=== PATIENT | female | born 1965 | race Caucasian/White ===

== ENCOUNTER 2016-08-19 15:07 | Inpatient (IN) ==
[2016-08-19 16:04] LABS: Basophils % 0.6 %; Eosinophils # 0.1 K/mcL (0.0-0.6); Eosinophils % 1.5 %; Hematocrit 32.7 % (35.3-44.9); Hemoglobin 10.9 g/dL (11.5-15.4); Immature Granulocytes % 0.4 % (0-4); Lymphocytes # 1.8 K/mcL (0.6-4.6); Lymphocytes % 25.7 %; Mean Corpuscular HGB Conc 33.3 g/dL (31.6-35.5); Mean Corpuscular Hemoglobin 29.6 pg (28.0-33.3); Mean Corpuscular Volume 88.9 fL (83.0-100.0); Monocytes # 0.8 K/mcL (0.0-1.3); Monocytes % 10.9 %; Neutrophils # 4.2 K/mcL (1.6-8.9); Platelet Count 146 K/mcL (140-400); Red Blood Count 3.68 M/mcL (3.82-4.97); Red Cell Distribution Width 13.3 % (11.5-14.5); Segmented Neutrophils % 60.9 %
--- NOTE | 2016-08-19 16:05 | Emergency Department Note ---
Disposition Clinical Impression: Lymphangitis Cellulitis Qualifiers: Site of cellulitis: extremity Site of cellulitis of extremity: lower extremity Laterality: unspecified laterality Qualified Code(s): L03.119 - Cellulitis of unspecified part of limb Disposition: Admitted As Inpatient Condition: Fair Referrals: Rayshawn Barroso MD [Primary Care Provider] - Forms: ED Satisfaction Letter Time of Disposition: 18:43 Skin/Abscess/FB HPI Chief complaint: ED Skin/Abscess/Foreign Body Stated complaint: ulcers on feet Time Seen by Provider: 08/19/16 15:27 Source: patient Limitations: no limitations Nursing Notes Reviewed: Yes Vital Signs Reviewed: Yes HPI Narrative: Ms. Wells, a 50 yo female, presents from home by POV with chief complaint of bilateral great toe pain. Patient is diabetic with a history of diabetic ulcers; is followed by [place] [facility]. Patient states she had calluses on the pads of both great toes which she removed at home 3 weeks ago. She was evaluated by podiatry one week ago and told to keep them clean, dry, with antibiotic ointment, and bandaged. Over the past 3 days, she has noted erythema. Over the past 24 hours, she has noted swelling. She is concerned it may be infected. PMH: Type 2 diabetes on oral antihyperglycemic as well as insulin. Psoriasis- denies use of immunosuppressants at this time. ROS: Positive: Bilateral great toe pain with wound and erythema swelling. Numbness of the different great toe. Negative: Fever, chills, nausea, vomiting, chest pains, palpitations, dyspnea, abdominal pain, changes in bowel or bladder, difficulty with evaluation Home Medications Medication Instructions Recorded Confirmed Citalopram [CeleXA] 20 mg PO DAILY 06/30/15 08/19/16 Dulaglutide [Trulicity] 0.75 mg SQ QWEEK 06/30/15 08/19/16 Insulin DETEMIR [Levemir] 60 unit SQ QAM 06/30/15 08/19/16 Insulin LISPRO [Humalog Kwikpen 0 unit SQ BIDWM MDD PER SLIDING 06/30/15 U-100] SCALE Metformin HCl [Glucophage] 1,000 mg PO BID 06/30/15 08/19/16 Pregabalin [Lyrica] 100 mg PO TID 06/30/15 08/19/16 Acetaminophen [Tylenol] 1,000 mg PO Q6HR PRN 08/19/16 08/19/16 Cyanocobalamin (Vitamin B-12) 1,000 mcg PO DAILY 08/19/16 08/19/16 [Vitamin B12] Etanercept [Enbrel] 50 mg SQ 2XW 08/19/16 08/19/16 Folic Acid 1 mg PO DAILY 08/19/16 08/19/16 Imipramine HCl [Tofranil] 50 mg PO BID 08/19/16 08/19/16 Insulin DETEMIR [Levemir Flextouch] 65 unit SQ HS 08/19/16 08/19/16 Multivitamin [Multivitamins] 1 cap PO DAILY 08/19/16 08/19/16 Pantoprazole Sodium [Protonix] 40 mg PO DAILY 08/19/16 08/19/16 Triamcinolone Acet 0.1% CRM 1 appl TP BID PRN 08/19/16 08/19/16 [Kenalog] Allergies Allergy/AdvReac Type Severity Reaction Status Date / Time Amoxicillin Allergy See Verified 08/19/16 15:15 Comments ibuprofen [From Advil] Allergy See Verified 08/19/16 15:15 Comments All systems ED: reviewed and negative except as stated. Past Medical History - Past Medical History Medical history: Reports: cirrhosis, diabetes Psychiatric history: Reports: no psych history - Social History Smoking Status: Never smoker Smokeless Tobacco Status: No Alcohol use: Reports: none Drug use: Reports: none Physical Exam Vital Signs Reviewed General: Patient is alert, oriented, and in no acute distress. HEENT: No facial asymmetry. Head is normocephalic and atraumatic. PERRLA. Trachea midline. Cardiovascular: Heart regular rate and rhythm without clicks, rubs, gallops, or murmurs. No JVD. PMI nondisplaced. Respiratory: Symmetric chest rise with poor respiratory effort. Bilateral breath sounds are clear without wheezing, crackles, or rhonchi. Abdomen: Obese. Bowel sounds present normoactive x-4 quadrants. Abdomen is soft, nondistended, and nontender. Musculoskeletal: Spontaneously moves all extremity is including bilateral great toes. Skin: Right great toe is swollen, erythematous, with approximately 1.5 cm diameter wound with lymphangitic streaking to the mid tibia. Left great toe is swollen, erythematous streaking, with 0.5 cm diameter ulcer. Neuro: Tip of patient's great toe has decreased sensation to light touch. Otherwise sensation intact in patient's bilateral feet. Psych: Patient's affect is appropriate for situation. - General Limitations: no limitations General appearance: alert, in no apparent distress Course Course Narrative: Initial concern is for bilateral poorly healing diabetic wounds one of which is ulcerative. Signs of localized infection without indication of systemic infection. Check sedimentation rate and, if positive, CT the patient's feet to rule out osteomyelitis. Patient has not gone through outpatient antibiotics. Concern however is her poorly controlled diabetes, peripheral artery disease. Patient has elevated ESR. Imaging is not remarkable for osteomyelitis. Have started empiric vancomycin and meropenem. Spoke with the admitting hospitalist, Dr. Vasques, who agrees to accept the patient. Vital Signs Temperature 98.5 F 08/19/16 15:16 Pulse Rate 108 08/19/16 15:16 Respiratory Rate 16 08/19/16 15:16 Blood Pressure 119/74 08/19/16 15:16 O2 Sat by Pulse Oximetry 96 08/19/16 15:16 Temperature 98.5 F 08/19/16 15:16 Pulse Rate 103 08/19/16 18:25 Respiratory Rate 16 08/19/16 18:25 Blood Pressure 127/80 08/19/16 18:25 O2 Sat by Pulse Oximetry 96 08/19/16 15:16 Oxygen Delivery Oxygen Delivery Room Air Skin/Abscess/Foreign Body - Medical Records Medical records reviewed: Yes I reviewed the patient's medical records. - Lab Data Lab results reviewed: Yes I reviewed the patient's lab results. Result diagrams: 08/19/16 15:58 08/19/16 15:58 Lab Results 08/19/16 08/19/16 08/19/16 Range/Units 15:58 15:58 15:58 WBC 6.9 (4.3-11.1) K/mcL RBC 3.68 L (3.82-4.97) M/mcL Hgb 10.9 L (11.5-15.4) g/dL Hct 32.7 L (35.3-44.9) % MCV 88.9 (83.0-100.0) fL MCH 29.6 (28.0-33.3) pg MCHC 33.3 (31.6-35.5) g/dL RDW 13.3 (11.5-14.5) % Plt Count 146 (140-400) K/mcL MPV 10.0 (9.4-12.4) fL Immature Gran % 0.4 (0-4) % Seg Neutrophils % 60.9 % Lymphocytes % 25.7 % Monocytes % 10.9 % Eosinophils % 1.5 % Basophils % 0.6 % Neutrophils # 4.2 (1.6-8.9) K/mcL Lymphocytes # 1.8 (0.6-4.6) K/mcL Monocytes # 0.8 (0.0-1.3) K/mcL Eosinophils # 0.1 (0.0-0.6) K/mcL Basophils # 0.0 (0.0-0.2) K/mcL ESR 45 H (0-15) mm/hr Sodium 136 (136-145) mEq/L Potassium 3.9 (3.5-4.5) mEq/L Chloride 102 (98-109) mEq/L Carbon Dioxide 22 (19-29) mEq/L BUN 10 (7-20) mg/dL Creatinine 0.68 (0.57-1.11) mg/dL Est GFR ( Amer) > 60 (> 60) Est GFR (Non-Af Amer) > 60 (> 60) BUN/Creatinine Ratio 15 (6-26) Glucose 232 H (70-99) mg/dL Calculated Osmolality 288 (280-300) Calcium 9.7 (8.6-10.8) mg/dL - Radiology Data Radiology results reviewed: Yes I reviewed the patient's radiology results. Foot X-Ray 08/19/16 15:29 IMPRESSION: 1. Suspected ulceration along the dorsal surface of left great toe with tiny associated radiopaque foreign bodies. 2. 0.1-0.2 cm suspected radiopaque foreign body near the skin of the dorsal right great toe. Although no obvious skin defect is noted in this area, this could represent a similar finding to that seen in the left great toe. 3. No findings osteomyelitis or necrotizing fasciitis. 4. Bony demineralization. 5. Osteoarthritic changes of the 1st metatarsophalangeal joints, mild on the left minimal on the right. D/ / Torrey Hinson MD / Torrey Hinson MD Interpreting Provider: Torrey Hinson MD Lower Extremity CT 08/19/16 16:15 IMPRESSION: 1. No CT evidence for osteomyelitis involving the right or left feet. 2. Diffuse and symmetric nonspecific mild subcutaneous edema of the bilateral feet and to a lesser extent involving the lower legs bilaterally with no focal organized drainable fluid collection identified. 3. Mild bilateral hindfoot and midfoot osteoarthritis as well as mild osteoarthritis of the bilateral 1st metatarsophalangeal joints. 4. Osteopenia. D/ / Jaylen Stevenson MD / Jaylen Stevenson MD Interpreting Provider: Jaylen Stevenson MD Attestation Statement - Attestation Attestation: I examined this patient and my medical decision-making was reviewed with the FINANCIAL DEVELOPER/PA/Advanced Practice Nurse/Resident Physician. I agree with the documented findings, disposition and treatment plan as described except to the extent set forth below. ED complaining of toe infections. Patient has ulcers on her great toes. They have been there for about 3 weeks. She has been using Neosporin and Band-Aids. They became more painful and red so she comes for evaluation. On examination the right great toe has an ulceration on the plantar aspect with minimal erythema. She also has an ulceration over the left great toe. Moderate amount of swelling and erythema of the great toe. She has erythema extending over the plantar base of the foot and dorsally over the foot. Plan. The patient has an ascending lymphangitis. IV antibiotics. We will check CT is and admit.
[2016-08-19] MEDS ORDERED: Vancomycin 1,000 MG in D5% in Water 250 ML IVPB ONE (16:16)
[2016-08-19 16:17] LABS: BUN/Creatinine Ratio 15 (6-26); Blood Urea Nitrogen 10 mg/dL (7-20); Calcium 9.7 mg/dL (8.6-10.8); Carbon Dioxide 22 mEq/L (19-29); Chloride 102 mEq/L (98-109); Glucose 232 mg/dL (70-99); Osmolality,Calculated 288 (280-300); Potassium 3.9 mEq/L (3.5-4.5); Sodium 136 mEq/L (136-145); eGFR For African Americans > 60 (> 60); eGFR For Non-African Americans > 60 (> 60)
[2016-08-19] MEDS ORDERED: Clindamycin 600 MG/50 ML 600 MG/50 ML IV.SOLN IVPB ONE (16:17)
[2016-08-19] MEDS ORDERED: Meropenem 500 MG in 0.9 % Sodium Chloride Mini Bag 100 ML IVPB ONE ×2 (18:50→21:15)
[2016-08-19] MEDS ORDERED: Naloxone 0.4 MG/ML INJ IVP PRN (20:08)
[2016-08-19] MEDS ORDERED: *HR* Dextrose 50 % in Water (Syg) 50 ML SYRINGE IVP PRN (20:43)
[2016-08-19] MEDS ORDERED: Dextrose Gel 15 GM PO PRN ×2 (20:43)
[2016-08-19] MEDS ORDERED: D5% in Water 1,000 ML IVC PRN (20:43)
[2016-08-19] MEDS ORDERED: Insulin LISPRO 300 UNITS/3 ML VIAL SQ SCH (21:00)
[2016-08-19] MEDS ORDERED: INSULIN DETEMIR 65 UNIT SQ SCH (21:00)
--- NOTE | 2016-08-19 21:04 | Internal Med History&Physical ---
<ChanellebryantsammySelvin lopez - Last Filed: 08/19/16 23:17> Date of Encounter: 08/19/16 Time of Encounter: 19:30 Assessment and Plan (1) Cellulitis of both feet Current visit: Yes Status: Acute Assess: Mrs. Wells presents with chief complaint of swelling and pain in her great toes bilaterally as well as the top of her left foot. Patient reports this has been going on for three weeks after she shaved two callouses off of each outer side of each great toe. She states this resulted in sores that were slow to heal which caused her to seek treatment with her litigation paralegal. She states she tried soaking the feet with various things, applying Neosporin, and bandaging them as directed by her litigation paralegal which seemed to help at first, but then the toes became erythematous within the last 48 hours and edematous within the last 24 hours. She reports concern of possible infection. Patient's feet appear to have cellulitis bilaterally which is worse in left foot by extending up to the top of the foot. Plan: IV clindamycin administered in ED IV vancomycin administered in ED Order for IV meropenem placed in ED Follow-up labs ordered Will continue vancomycin with pharmacy dosing for broad spectrum infection coverage Will add ceftriaxone for infection coverage as well Wound culture ordered Anaerobic culture ordered Wound care consult ordered Monitor patient for worsening signs of infection Monitor patient for any signs of allergic rxn to antibiotics Monitor vital signs Falls precautions/Up with assist status (2) Diabetes Current visit: Yes Status: Chronic Assess: Patient presents with history of chronic diabetes managed with oral anti- hyperglycemics and insulin. Plan: Continue insulin coverage Correction insulin dosing ordered Hypoglycemic protocol ordered Diabetic diet ordered Diabetic education consult ordered Patient educated regarding neuropathy and checking extremities (especially bony prominences) for signs of ulcerations and wounds Qualifiers: Diabetes mellitus type: type 2 Diabetes mellitus complication status: with neurologic complications Diabetes mellitus complication detail: with unspecified neuropathy Diabetes mellitus termite exterminator helper insulin use: with termite exterminator helper use Qualified Code(s): E11.40 - Type 2 diabetes mellitus with diabetic neuropathy, unspecified; Z79.4 - group home (current) use of insulin (3) Psoriasis Current visit: Yes Status: Chronic Assess: Patient presents with chronic history of psoriasis. Plan: Continue patient's Enbrel from home which is to be verified with pharmacy for administration (4) Migraine Current visit: Yes Status: Chronic Assess: Patient has a history of chronic migraines without aura or intractable pain. Patient states that she can usually manage her migraines with Tylenol or Tylenol Migraine. Plan: Tylenol 1,000 mg BID PRN for migraine symptoms Qualifiers: Migraine type: unspecified Status migrainosus presence: without status migrainosus Intractability: not intractable Qualified Code(s): G43.909 - Migraine, unspecified, not intractable, without status migrainosus (5) DVT prophylaxis Current visit: Yes Status: Acute Assess: Patient to receive DVT prophylaxis due to current infection status, bed rest, and inpatient protocol. Plan: Heparin 5,000 units SQ Q8 ordered Internal Medicine - H&P: HPI Chief complaint: Bilateral great toe pain/swelling Admitted From: Emergency Dept Plans for Post Hospital Care: Home History of present illness: Ms. Wells is a 50 year old female who presents from the ED with chief complaint of swelling and pain in her great toes bilaterally as well as the top of her left foot. Patient reports this has been going on for three weeks after she shaved two callouses off of each outer side of each great toe. She states this resulted in sores that were slow to heal which caused her to seek treatment with her litigation paralegal. She states she tried soaking the feet with various things, applying Neosporin, and bandaging them as directed by her litigation paralegal which seemed to help at first, but then the toes became erythematous within the last 48 hours and edematous within the last 24 hours. She reports concern of possible infection. Patient's feet appear to have cellulitis bilaterally which is worse in left foot by extending up to the top of the foot. Patient has history of chronic diabetes with oral antihyperglycemics and insulin dependency that is uncontrolled (glucose taken at home yesterday evening was 489 and later at midnight was 234). Glucose reading in the ED today was 232. Mrs. Wells has a history of psoriasis, diabetes, and migraines. She denies fever, chills, nausea, vomiting, chest pain, palpitations, SOB, abdominal pain, or changes in bowel and bladder. Patient was given IV vancomycin and clindamycin while in the ED with orders for IV meropenem placed by the ED as well. Patient is to be placed as observation status with falls precautions and [id number] status. Patient to be monitored closely for further signs of infection. Patient is at increased risk for worsening infection due to hyperglycemic status, bilateral neuropathy, and present signs of cellulitis. Time spent with patient was 40 minutes. Past Med Surg Social Fam HX - Past Medical History Source: patient Medical history: diabetes, migraine, other (Psoriasis) Psychiatric history: no psych history - Past Surgical History Surgical History: no surgical history - Social History Smoking Status: Former smoker Packs per day: 1/2 PPD 30 years ago Smokeless Tobacco Status: No Alcohol use: none Drug use: none Occupational status: unemployed Current living situation: Home, With Family Activity Level: Independent ambulation Recent Out of Country Travel Within the Last 8 Weeks: No Exposure or Possible Exposure to Illness During Travel: No - Family History Father Race: Family Member Ethnicity: Non- Living Status: Cause of : Cancer of bone/lung Hx Family Cancer: Yes (Bone/lung) Mother Race: Family Member Ethnicity: Non- Living Status: Still Living Hx Family Cardiac Disorders: Yes (HTN) Hx Family Cancer: Yes (Breast) Hx Family Endocrine Disorder: Yes (DM) Hx Family Musculoskeletal Disorders: Yes (Gout) Brother Race: Family Member Ethnicity: Non- Living Status: Still Living Hx Family Medical Disorders: No Sister Race: Family Member Ethnicity: Non- Living Status: Age at : 57 Cause of : Complications of DM Hx Family Cardiac Disorders: Yes (HD) Hx Family Respiratory Disorders: Yes (COPD) Internal Medicine - H&P: Meds Citalopram [CeleXA] 20 mg PO DAILY 06/30/15 [History] Dulaglutide [Trulicity] 0.75 mg SQ QWEEK 06/30/15 [History] Insulin DETEMIR [Levemir] 60 unit SQ QAM 06/30/15 [History] Insulin LISPRO [Humalog Kwikpen U-100] 0 unit SQ BIDWM MDD PER SLIDING SCALE 11/06 [History] Metformin HCl [Glucophage] 1,000 mg PO BID 06/30/15 [History] Pregabalin [Lyrica] 100 mg PO TID 06/30/15 [History] Acetaminophen [Tylenol] 1,000 mg PO Q6HR PRN 08/19/16 [History] Cyanocobalamin (Vitamin B-12) [Vitamin B12] 1,000 mcg PO DAILY 08/19/16 [History ] Etanercept [Enbrel] 50 mg SQ 2XW 08/19/16 [History] Folic Acid 1 mg PO DAILY 08/19/16 [History] Imipramine HCl [Tofranil] 50 mg PO BID 08/19/16 [History] Insulin DETEMIR [Levemir Flextouch] 65 unit SQ HS 08/19/16 [History] Multivitamin [Multivitamins] 1 cap PO DAILY 08/19/16 [History] Pantoprazole Sodium [Protonix] 40 mg PO DAILY 08/19/16 [History] Triamcinolone Acet 0.1% CRM [Kenalog] 1 appl TP BID PRN 08/19/16 [History] Allergies Amoxicillin Allergy (Verified 08/19/16 15:15) See Comments ibuprofen [From Advil] Allergy (Verified 08/19/16 15:15) See Comments All Systems PM: A 10-system review of systems was performed and is negative for pertinent findings except as documented above in the HPI. - Constitutional Constitutional: no chills, no fever(s), no night sweats - EENT Eyes: no change in vision, no discharge, no pain, no photophobia Ears: no ear discharge, no ear pain, no tinnitus Nose, mouth and throat: no dysphagia, no nasal discharge, no neck pain, no sore throat - Breasts Breasts: as per HPI - Cardiovascular Cardiovascular ROS IM: no chest pain, no diaphoresis, no dyspnea, no lightheadedness, no palpitations, no syncope - Respiratory Respiratory: no cough, no dyspnea, no wheezing, no excessive phlegm production - Gastrointestinal Gastrointestinal: no abdominal pain, no diarrhea, no hematemesis, no hematochezia, no melena, no nausea, no vomiting - Genitourinary Genitourinary: no change in urinary stream, no dysuria, no flank pain, no hematuria Menstruation: as per HPI - Musculoskeletal Musculoskeletal ROS IM: as per HPI, no numbness, no tingling - Integumentary Integumentary IM: as per HPI, erythema, sores - Neurological Neurological ROS: no confusion, no convulsions, no focal weakness, no numbness, no tingling, no tremor(s) - Psychiatric Psychiatric: as per HPI - Endocrine Endocrine IM: as per HPI - Hematologic/Lymphatic Hematologic/Lymphatic: no easy bruising - Allergic/Immunologic Allergic/Immunologic: as per HPI - Constitutional Vitals: Temp Pulse Resp BP Pulse Ox 98.2 F 99 18 102/65 98 08/19/16 20:11 08/19/16 20:11 08/19/16 20:11 08/19/16 20:11 08/19/16 20:11 General appearance: Present: cooperative, A&O X 3, pleasant, no acute distress, obese, answers questions appropriately - Head Head exam: Present: atraumatic, normocephalic - Eye Eye exam: Present: PERRL, conjuntiva pink, sclera anicteric Pupils: Present: PERRL - ENT ENT exam: Present: normal exam, normal external ear exam - Neck Neck exam general surgery: Present: supple, trachea midline. Absent: lymphadenopathy - Respiratory Respiratory exam: Present: CTAB. Absent: accessory muscle use, rales, rhonchi, wheezes - Cardiovascular Cardiovascular exam: Present: RRR, +S1, +S2. Absent: diastolic murmur, gallop, rubs, systolic murmur - GI/Abdominal GI/Abdominal exam: Present: normal bowel sounds, soft, no peritoneal signs. Absent: distended, tenderness - Rectal Rectal exam: Present: deferred - Additional comments: exam deferred. - Extremities Exam Extremities exam: Present: pedal edema (Bilateral edema and erythema due to cellulitis which is worse in left great toe and top of left foot ), warm, radial pulses palpable and symetrical. Absent: calf tenderness, cyanotic - Back Exam Back exam: Present: normal inspection - Neurological Exam Neurological exam: Present: CN II-XII intact, oriented X3, no focal deficits. Absent: pronater drift, facial droop, speech deficit - Psychiatric Psychiatric exam: Present: normal affect, normal mood - Skin Skin exam: Present: dry, erythema (Erythema, edema, and sores present on bilateral great toes), intact, warm (Bilateral warmth of great toes and feet which is more pronounced on the left foot) Internal Med - H&P Results - Labs CBC & Chem 7: 08/19/16 15:58 08/19/16 15:58 - Diagnostic Studies Other Images Additional comments: 2-View XR of the right and left foot dated 08/19/16 shows: Suspected ulceration along the dorsal surface of the left great toe with tiny associated radiopaque foreign bodies. 0.1-0.2 cm suspected radiopaque foreign body near the skin of the dorsal right great toe. Although no obvious skin defect is noted in this area, this could represent a similar finding to that seen in the left great toe. No findings of osteomyelitis or necrotizing fasciitis. Bony demineralization. Osteoarthritic changes of the 1st metatarsophalangeal joints, mild on the left and minimal on the right. CT of the left lower extremity w/o contrast and CT of the right lower extremity w/o contrast dated 08/19/16 shows: No CT evidence of osteomyelitis involving the left or right feet. Diffuse and symmetric non-specific mild subcutaneous edema of the bilateral feet and to a lesser extent involving the lower legs bilaterally with no focal organized drainable fluid collection identified. Mild bilateral nidfoot and midfoot osteoarthritis as well as mild osteoarthritis of the bilateral 1st metatarsophalangeal joints. Osteopenia. <Dean Mckenna - Last Filed: 08/20/16 02:37> Date of Encounter: 08/20/16 Internal Medicine - H&P: HPI History of present illness: Ms. Wells is a 50 year old female All Systems PM: A 10-system review of systems was performed and is negative for pertinent findings except as documented above in the HPI. - Constitutional Vitals: Temp Pulse Resp BP Pulse Ox 98.0 F 93 16 120/72 95 08/20/16 00:28 08/20/16 00:28 08/20/16 00:28 08/20/16 00:28 08/20/16 00:28 Internal Med - H&P Results - Labs CBC & Chem 7: 08/19/16 15:58 08/19/16 15:58 Labs: Liver Function 08/19/16 Range/Units 21:44 Total Bilirubin 0.6 (0.2-1.2) mg/dL Direct Bilirubin 0.3 (0.0-0.5) mg/dL AST 25 (5-34) Units/L ALT 27 (0-55) Units/L Alkaline Phosphatase 78 (38-126) Units/L Albumin 3.4 L (3.5-5.0) g/dL - Attending Attestation I examined this patient and my medical decision-making was reviewed with the ENERGY AUDIT ADVISOR/PA/Advanced Practice Nurse/Resident Physician. I agree with the documented findings, disposition and treatment plan as described except to the extent set forth below. Patient is being admitted for bilateral foot cellulitis. We will treat her with IV ceftriaxone and vancomycin. Follow-up wound culture and adjust antibiotic therapy accordingly. She is at high risk due to IV vancomycin which requires blood level monitoring for therapeutic effect.
[2016-08-19] MEDS: Pregabalin 50 MG CAPSULE PO SCH (21:06)
[2016-08-19] MEDS ORDERED: *HR* Morphine 2 MG/ML SYRINGE IVP PRN (21:56)
[2016-08-19 22:08] LABS: Albumin 3.4 g/dL (3.5-5.0); Albumin/Globulin Ratio 0.8 (1.1-2.2); Bilirubin,Direct 0.3 mg/dL (0.0-0.5); Bilirubin,Indirect 0.3 mg/dL (0.0-1.2); Bilirubin,Total 0.6 mg/dL (0.2-1.2); Globulin 4.5 g/dL (2.4-3.5); Total Protein 7.9 g/dL (6.0-8.3)
[2016-08-19] MEDS: Insulin DETEMIR 100 UNIT/ML X5UNITS SQ SCH (22:14)
[2016-08-19] MEDS: *HR* HYDROcodone/Acet 5/325 mg TABLET PO PRN (22:14)
--- NOTE | 2016-08-19 23:07 | Event Note ---
Date of Encounter: 08/19/16 Time of Encounter: 23:04 I examined this patient and my medical decision-making was reviewed with the MAIL ORDER CLERK/PA/Advanced Practice Nurse/Resident Physician. I agree with the documented findings, disposition and treatment plan as described except to the extent set forth below. patient presented to the hospital with bilateral foot pain skin redness and swelling particularly in her left great toe and area around the left forefoot. On exam she is in no acute distress. Heart is regular with normal S1 and S2, no murmurs. Lower extremity exam reveals skin redness of the left great toe and left foot. There is also redness of the right foot albeit less compared to the left. CT of the lower extremities shows no evidence of osteomyelitis. Soft tissue swelling compatible with cellulitis. Plan: Patient has cellulitis of both feet. Bacterial agent likely Staphylococcus aureus, possibly community-acquired MRSA. We will start broad- spectrum IV antibiotic coverage with ceftriaxone and vancomycin. She has a listed allergy to amoxicillin. We will monitor closely for allergic reaction although there rare cross reactivity between penicillin and cephalosporin allergy. We will follow-up wound cultures. Blood cultures were not obtained. I would hold off now given that the patient received several doses of broad- spectrum IV antibiotics. I will obtain blood cultures if the patient spikes a fever. Consult podiatry. She is at high risk for morbidity and complications due to treatment with IV vancomycin which requires blood level monitoring for toxicity.
[2016-08-20 00:52] LABS: Hemoglobin A1C 7.5 %
[2016-08-20] MEDS: *HR* Heparin 5,000 UNIT/ML VIAL SQ SCH ×3 (00:57→16:49)
[2016-08-20] MEDS: ETANERCEPT 50 MG/ML SQ SCH (01:27)
[2016-08-20] MEDS: (Imipramine Hcl [Tofranil] 50 MG) PO SCH ×2 (01:40→08:23)
[2016-08-20] MEDS: *HR* HYDROcodone/Acet 5/325 mg TABLET PO PRN ×4 (02:54→22:52)
[2016-08-20] MEDS: Vancomycin 1,250 MG in D5% in Water 250 ML IVPB SCH ×2 (02:56→15:03)
[2016-08-20 05:41] LABS: Basophils % 0.7 %; Eosinophils # 0.2 K/mcL (0.0-0.6); Eosinophils % 3.2 %; Hematocrit 33.3 % (35.3-44.9); Hemoglobin 11.1 g/dL (11.5-15.4); Immature Granulocytes % 0.5 % (0-4); Lymphocytes # 2.2 K/mcL (0.6-4.6); Mean Corpuscular HGB Conc 33.3 g/dL (31.6-35.5); Mean Corpuscular Hemoglobin 29.8 pg (28.0-33.3); Mean Corpuscular Volume 89.3 fL (83.0-100.0); Mean Platelet Volume 10.3 fL (9.4-12.4); Monocytes # 0.6 K/mcL (0.0-1.3); Monocytes % 10.1 %; Neutrophils # 2.9 K/mcL (1.6-8.9); Platelet Count 169 K/mcL (140-400); Red Blood Count 3.73 M/mcL (3.82-4.97); Red Cell Distribution Width 13.3 % (11.5-14.5); Segmented Neutrophils % 48.5 %
[2016-08-20 05:46] LABS: INR 1.2; Prothrombin Time 13.2 Seconds (9.4-12.1)
[2016-08-20 05:49] LABS: Activated Partial Thrombo Time 31.3 Seconds (26.0-36.0)
[2016-08-20 05:58] LABS: Alanine Aminotransferase 26 Units/L (0-55); Albumin 3.4 g/dL (3.5-5.0); Albumin/Globulin Ratio 0.8 (1.1-2.2); Alkaline Phosphatase 72 Units/L (38-126); Aspartate Amino Transferase 25 Units/L (5-34); BUN/Creatinine Ratio 11 (6-26); Bilirubin,Total 0.6 mg/dL (0.2-1.2); Blood Urea Nitrogen 7 mg/dL (7-20); Calcium 9.5 mg/dL (8.6-10.8); Carbon Dioxide 24 mEq/L (19-29); Chloride 104 mEq/L (98-109); Chol/HDL Ratio 3.5 (0-4.9); Cholesterol 122 mg/dL (< 200); Globulin 4.4 g/dL (2.4-3.5); Glucose 113 mg/dL (70-99); HDL Cholesterol 35 mg/dL (40-59); LDL Cholesterol,Calculated 57 mg/dL (0-99); Magnesium 1.8 mg/dL (1.6-2.6); Osmolality,Calculated 287 (280-300); Phosphorous 4.5 mg/dL (2.3-4.7); Potassium 3.4 mEq/L (3.5-4.5); Sodium 139 mEq/L (136-145); Total Protein 7.8 g/dL (6.0-8.3); Triglycerides 151 mg/dL (< 150); eGFR For African Americans > 60 (> 60); eGFR For Non-African Americans > 60 (> 60)
[2016-08-20] MEDS: Pregabalin 50 MG CAPSULE PO SCH ×3 (08:12→22:30)
[2016-08-20] MEDS: Multivit/Ca/Min/Fe/FA 1 TAB TABLET PO SCH (08:12)
[2016-08-20] MEDS: Cyanocobalamin (B-12) 1,000 MCG TABLET PO SCH (08:12)
[2016-08-20] MEDS: Folic Acid 1 MG TABLET PO SCH (08:12)
[2016-08-20] MEDS: Insulin DETEMIR 100 UNIT/ML X5UNITS SQ SCH (08:13)
[2016-08-20] MEDS: Insulin LISPRO 300 UNITS/3 ML VIAL SQ SCH ×3 (08:22→16:49)
[2016-08-20 08:24] LABS: Bilirubin,Urine Negative (Negative); Blood,Urine Negative (Negative); Clarity,Urine Clear (Clear); Color,Urine Yellow (Yellow); Glucose,Urine (UA) Normal (Normal); Ketones,Urine Negative (Negative); Leukocyte Esterase,Urine Moderate (Negative); Nitrite,Urine Negative (Negative); PH,Urine 7.5 pH Units (5.0-8.0); Protein,Urine Negative (Neg-Trace); Specific Gravity,Urine 1.008 (1.010-1.025); Urobilinogen,Urine Normal (Normal)
[2016-08-20 08:26] LABS: Bacteria,Urine Few per hpf (None-Few); Hyaline Casts,Urine None Seen per lpf (None-Few); RBC,Urine 0-3 per hpf (0-3); Squamous Epithelial Cell,Urine Many per lpf (None-Few)
[2016-08-20] MEDS ORDERED: NON-FORMULARY MEDICATION 1 EACH EACH (Insulin Detemir 60 UNIT) SQ SCH (09:00)
[2016-08-20] MEDS ORDERED: Insulin LISPRO 300 UNITS/3 ML VIAL SQ SCH (12:37)
--- NOTE | 2016-08-20 12:59 | Internal Med Progress Note ---
Date of Encounter: 08/20/16 Time of Encounter: 10:00 - Assessment and plan (1) Cellulitis of both feet Current Visit: Yes Status: Acute Assessment and plan: Cause by diabetic foot. - Patient was educated to check feet regularly. - Continue antibiotic treatment. Symptoms improved after treatment. - Podiatry consult pt is at high risk because she is on vancomycin, need close monitoring (2) DVT prophylaxis Current Visit: Yes Status: Acute Assessment and plan: Heparin subcutaneously (3) Diabetes Current Visit: Yes Status: Chronic Assessment and plan: Continue basal and sliding [place] insulin. Adjust doses according to glucose level. 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 Qualified Code(s): E11.40 - Type 2 diabetes mellitus with diabetic neuropathy, unspecified; Z79.4 - laborer marine terminal (current) use of insulin (4) Psoriasis Current Visit: Yes Status: Chronic Assessment and plan: Stable, Continue home medication (5) Migraine Current Visit: Yes Status: Chronic Assessment and plan: Stable, continue home medication Qualifiers: Migraine type: unspecified Status migrainosus presence: without status migrainosus Intractability: not intractable Qualified Code(s): G43.909 - Migraine, unspecified, not intractable, without status migrainosus - Time Spent With Patient Greater than 35 minutes - Subjective Interval history: Patient is a 50-year-old female admitted for both feet cellulitis. Her past medical history is significant for diabetes. Patient was seen and examined. The cellulitis had improved significantly after treatment with vancomycin and Rocephin. Patient complain no pain. No fever. We will continue antibiotics. Podiatry consult. - Constitutional Vitals: Temp Pulse Resp BP Pulse Ox 98.2 F 95 16 112/74 92 08/20/16 12:10 08/20/16 12:10 08/20/16 12:10 08/20/16 12:10 08/20/16 12:10 General appearance: Present: cooperative, A&O X 3, pleasant, no acute distress, obese, answers questions appropriately - Head Head exam: Present: atraumatic, normocephalic - Eye Eye exam: Present: PERRL, conjuntiva pink, sclera anicteric Pupils: Present: PERRL - Neck Neck exam general surgery: Present: supple, trachea midline. Absent: lymphadenopathy - Respiratory Respiratory exam: Present: CTAB. Absent: accessory muscle use, rales, rhonchi, wheezes - Cardiovascular Cardiovascular exam: Present: RRR, +S1, +S2. Absent: diastolic murmur, gallop, rubs, systolic murmur - GI/Abdominal GI/Abdominal exam: Present: normal bowel sounds, soft, no peritoneal signs. Absent: distended, tenderness - Extremities Exam Extremities exam: Present: warm, radial pulses palpable and symetrical. Absent : calf tenderness, cyanotic, pedal edema Additional comments: B/L feet toe redness, with small ulcer, Lt> Rt - Neurological Exam Neurological exam: Present: CN II-XII intact, oriented X3, no focal deficits. Absent: pronater drift, facial droop, speech deficit - Skin Skin exam: Present: dry, intact Internal Medicine: Result - Labs CBC & Chem 7: 08/20/16 04:49 08/20/16 04:49 Labs: Short CBC 08/20/16 Range/Units 04:49 WBC 6.0 (4.3-11.1) K/mcL Hgb 11.1 L (11.5-15.4) g/dL Hct 33.3 L (35.3-44.9) % Plt Count 169 (140-400) K/mcL Neutrophils # 2.9 (1.6-8.9) K/mcL BMP 08/20/16 04:49 Sodium 139 Potassium 3.4 L Chloride 104 Carbon Dioxide 24 BUN 7 Creatinine 0.63 Glucose 113 H Calcium 9.5 Liver Function 08/19/16 08/20/16 Range/Units 21:44 04:49 Total Bilirubin 0.6 0.6 (0.2-1.2) mg/dL Direct Bilirubin 0.3 (0.0-0.5) mg/dL AST 25 25 (5-34) Units/L ALT 27 26 (0-55) Units/L Alkaline Phosphatase 78 72 (38-126) Units/L Albumin 3.4 L 3.4 L (3.5-5.0) g/dL Urine 08/20/16 Range/Units 00:46 Urine Color Yellow (Yellow) Urine Clarity Clear (Clear) Urine pH 7.5 (5.0-8.0) pH Units Ur Specific [place] 1.008 L (1.010-1.025) Urine Protein Negative (Neg-Trace) mg/dL Urine Glucose (UA) Normal (Normal) mg/dL - ABG Interpretation ABG results: PT/INR, D-dimer PT 13.2 Seconds (9.4-12.1) H 08/20/16 04:49 Consult Discharge Plan - Plan Referrals: Rayshawn Barroso MD [Primary Care Provider] -
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
[2016-08-20] MEDS ORDERED: Vancomycin 1,000 MG in D5% in Water 250 ML IVPB SCH (23:45)
[2016-08-21] MEDS: Insulin DETEMIR 100 UNIT/ML X5UNITS SQ SCH ×3 (00:29→21:20)
[2016-08-21] MEDS: *HR* Heparin 5,000 UNIT/ML VIAL SQ SCH ×4 (00:30→23:51)
[2016-08-21] MEDS: Vancomycin 1,250 MG in D5% in Water 250 ML IVPB SCH ×2 (03:32→14:48)
[2016-08-21 06:03] LABS: Basophils % 0.8 %; Eosinophils # 0.2 K/mcL (0.0-0.6); Eosinophils % 3.9 %; Hematocrit 32.3 % (35.3-44.9); Immature Granulocytes % 0.4 % (0-4); Lymphocytes % 38.4 %; Mean Corpuscular HGB Conc 34.1 g/dL (31.6-35.5); Mean Corpuscular Hemoglobin 30.1 pg (28.0-33.3); Mean Corpuscular Volume 88.3 fL (83.0-100.0); Mean Platelet Volume 10.2 fL (9.4-12.4); Monocytes # 0.6 K/mcL (0.0-1.3); Monocytes % 10.9 %; Neutrophils # 2.3 K/mcL (1.6-8.9); Platelet Count 175 K/mcL (140-400); Red Blood Count 3.66 M/mcL (3.82-4.97); Red Cell Distribution Width 13.4 % (11.5-14.5); Segmented Neutrophils % 45.6 %
[2016-08-21 06:16] LABS: BUN/Creatinine Ratio 11 (6-26); Blood Urea Nitrogen 7 mg/dL (7-20); Calcium 9.5 mg/dL (8.6-10.8); Carbon Dioxide 25 mEq/L (19-29); Chloride 103 mEq/L (98-109); Glucose 233 mg/dL (70-99); Osmolality,Calculated 287 (280-300); Potassium 3.6 mEq/L (3.5-4.5); Sodium 136 mEq/L (136-145); eGFR For African Americans > 60 (> 60); eGFR For Non-African Americans > 60 (> 60)
[2016-08-21] MEDS: Pregabalin 50 MG CAPSULE PO SCH ×3 (07:46→21:20)
[2016-08-21] MEDS: Multivit/Ca/Min/Fe/FA 1 TAB TABLET PO SCH (07:47)
[2016-08-21] MEDS: Cyanocobalamin (B-12) 1,000 MCG TABLET PO SCH (07:47)
[2016-08-21] MEDS: Folic Acid 1 MG TABLET PO SCH (07:47)
[2016-08-21] MEDS: Insulin LISPRO 300 UNITS/3 ML VIAL SQ SCH ×3 (07:59→17:24)
[2016-08-21] MEDS ORDERED: cephALEXin 500 MG CAPSULE PO SCH (09:00)
[2016-08-21] MEDS: *HR* HYDROcodone/Acet 5/325 mg TABLET PO PRN (09:47)
--- NOTE | 2016-08-21 10:18 | Discharge Summary ---
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 Qualified Code(s): E11.40 - Type 2 diabetes mellitus with diabetic neuropathy, unspecified; Z79.4 - [facility] (current) use of insulin (4) Psoriasis Status: Chronic (5) Migraine Status: Chronic Qualifiers: Migraine type: unspecified Status migrainosus presence: without status migrainosus Intractability: not intractable Qualified Code(s): G43.909 - Migraine, unspecified, not intractable, without status migrainosus - Discharge Medications Home Medications: Citalopram [CeleXA] 20 mg PO DAILY 06/30/15 [History] Dulaglutide [Trulicity] 0.75 mg SQ QWEEK 06/30/15 [History] Insulin DETEMIR [Levemir] 60 unit SQ QAM 06/30/15 [History] Insulin LISPRO [Humalog Kwikpen U-100] 0 unit SQ BIDWM MDD PER SLIDING SCALE 11/06 [History] Metformin HCl [Glucophage] 1,000 mg PO BID 06/30/15 [History] Pregabalin [Lyrica] 100 mg PO TID 06/30/15 [History] Acetaminophen [Tylenol] 1,000 mg PO Q6HR PRN 08/19/16 [History] Cyanocobalamin (Vitamin B-12) [Vitamin B12] 1,000 mcg PO DAILY 08/19/16 [History ] Etanercept [Enbrel] 50 mg SQ 2XW 08/19/16 [History] Folic Acid 1 mg PO DAILY 08/19/16 [History] Imipramine HCl [Tofranil] 100 mg PO HS 08/19/16 [History] Insulin DETEMIR [Levemir Flextouch] 65 unit SQ HS 08/19/16 [History] Multivitamin [Multivitamins] 1 cap PO DAILY 08/19/16 [History] Pantoprazole Sodium [Protonix] 40 mg PO DAILY 08/19/16 [History] Triamcinolone Acet 0.1% CRM [Kenalog] 1 appl TP BID PRN 08/19/16 [History] Allergies/Adverse Reactions: Allergies Amoxicillin Allergy (Verified 08/19/16 15:15) See Comments ibuprofen [From Advil] Allergy (Verified 08/19/16 15:15) See Comments Date of admission: 08/19/16 20:08 Primary care physician: Rayshawn Barroso MD Consults: 08/19/16 20:17 Consult to Hand Profiler [CONS] Routine Comment: Reason for Consult: Patient has history of uncontrolled DM 08/19/16 21:33 Consult to Wound Care [CONS] Routine Reason for Consult: Patient has bilateral wounds on great toes with signs of cellulitis Call Completed: Yes 08/19/16 23:06 Consult to Podiatry [CONS] Routine Consulting Provider: Pod[facility]ry [facility] Reason for Consult: Patient has bilateral cellulitis of feet and lower extremities, especiall on great toes due to self-removal of callouses. Erythema and edema present which is worse on left foot, extending up to top of foot. Call Completed: Yes Discharging clinician: Nayeli Tafoya Anticipated date of discharge: 08/21/16 - Patient Status Condition: Fair - Discharge Instructions Follow Up With: Rayshawn Barroso MD [Primary Care Provider] - Hospital course: Ms. Wells is a 50 year old female - Time Spent with Patient Total time spent providing and/or coordinating discharge services: - Constitutional Vitals: Temp Pulse Resp BP Pulse Ox 98.0 F 93 20 120/78 92 08/21/16 06:44 08/21/16 06:44 08/21/16 06:44 08/21/16 06:44 08/21/16 06:44 General appearance: Present: cooperative, A&O X 3, pleasant, no acute distress, obese, answers questions appropriately
[2016-08-21] MEDS ORDERED: Lactulose Oral Soln 20 GM/30 ML UDC PO ONE (12:15)
--- NOTE | 2016-08-21 13:25 | Podiatry Progress Note ---
Date of Encounter: 08/21/16 Time of Encounter: 12:10 - Assessment and Plan (1) Cellulitis of both feet Current Visit: Yes Status: Acute S/p sharp cutting with a #10 and 15 scalpel blade on 08/20/16 to the hemmorhaged callused lesion of the left great toe revealed a partial thickness ulceration secondary to pressure from callused lesion and DM with neuropathy. Scant amount of purulent drainage. No fluctuance, no odor today. Wound care to include cleansing left great toe ulcer daily with saline, pat dry, apply silver alginate, with dry gauze, and kerlix. Decreased erythema and swelling since admission. S/p sharp cutting with #10 scalpel blade on 08/20/16 to the right great toe revealed a foreign body consistent with a small rock that was removed, ulcer irrigated with saline, and pat dry. Right great toe Ulceration is superficial, no pus, no odor, decreased erythema and swelling. Erythema has decreased significantly from borders drawn upon arrival to hospital of both feet. Currently receiving Vancomycin and Rocephin IV. Recommend patient be discharged on oral antibiotics based on sensitivity report from wound cultures obtained in ED. Preliminary wound culture results of left foot: GPC, strep agalcatiae (Group B). ESR: 45 hemoglobin A1C: 7.5 CT of both feet: negative for OM or abscess. Continue wound care, will f/u with patient tomorrow. Educated and discussed keeping blood sugars under control to aid in healing of ulcerations. Patient will need a post op shoe to the left foot upon discharge. Will need to f/u in wound care clinic with in one week of discharge from the hospital. 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 Patient states she is feeling better today, she states t e left great toe is sore. No c/o fever or chills overnight. Patient has dressings dry and intact to both feet with post op shoes at bedside. Patient is sitting up in bed with lunch. Objective - Vital Signs Vital Signs: Vital Signs Temp Pulse Resp BP Pulse Ox 08/21/16 11:51 98.1 F 92 16 115/75 95 08/21/16 06:44 98.0 F 93 20 120/78 92 08/21/16 03:53 97.9 F 95 18 118/80 93 08/21/16 01:13 97.9 F 95 18 106/70 94 08/20/16 19:02 98.1 F 96 18 120/75 95 08/20/16 15:06 98.4 F 90 16 121/73 96 Intake and Output 08/20/16 08/21/16 08/21/16 23:59 07:59 15:59 Intake Total 1390 / 1390 590 / 590 360 / 360 Output Total 800 / 800 0 / 0 Balance 590 / 590 590 / 590 360 / 360 Intake: IV Fluids 350 / 350 350 / 350 Vancocin 1,250 MG In 250 / 250 250 / 250 Dextrose 5% 250 ML @ 166. 67 mls/hr IVPB Q12H [facility] Rx#:[id number] Rocephin 1,000 MG In 100 / 100 100 / 100 Dextrose 5% (Minibag+) 100 ML 100 ML @ 200 mls/ hr IVPB Q12H [facility] Rx#: [id number] Oral 1040 / 1040 240 / 240 360 / 360 Output: Urine 800 / 800 0 / 0 Other: Meal Dinner Lunch Percent of Meal Consumed 100% 5% Weight 71.395 kg Blood Glucose* 157 222 299 Patient Weight 08/21/16 23:59 Weight 71.395 kg - Exam Exam: General appearance: alert awake oriented X 3. Calm and pleasant, no acute distress.. Vascular: Pedal pulses +2/4 DP/PT , No evidence of cyanosis, pallor or rubor, Edema graded at 1+/4, Skin Temperature warm, No varicosities or varicose veins noted, Homans Sign negative, capillary refill time is immediate to digits.. Neurologic: Intact sensation with light touch. Musculoskeletal: Muscle strength 5/5 and equal bilaterally.. Integument: Skin with decreased turgor, decreased subcutaneous tissue, skin thin and shiny with trophic changes associated with comorbidities as described in history.reveal Ulcer: Partial thickness ulceration to the plantar aspect of the left great toe measuring 0.5 cm in length x 0.6 cm in width x 0.2 cm in depth with a tunnel at 3 O'clock measuring 1.2 cm, base of wound is yellow. Scant amount of purulent drainage expressed, no odor, periwound erythema ascending to the base of the proximal phalanx. No probe to bone. Ulceration to medial aspect of left great toe is superficial, no tunneling, no sinus tracts, no pus, no odor, no probe to bone. - Lab Result Diagrams: 08/21/16 05:11 08/21/16 05:11 Labs: Abnormal lab results RBC 3.66 M/mcL (3.82-4.97) L 08/21/16 05:11 Hgb 11.0 g/dL (11.5-15.4) L 08/21/16 05:11 Hct 32.3 % (35.3-44.9) L 08/21/16 05:11 ESR 45 mm/hr (0-15) H 08/19/16 15:58 PT 13.2 Seconds (9.4-12.1) H 08/20/16 04:49 Glucose 233 mg/dL (70-99) H 08/21/16 05:11 POC Glucose 299 (58-89) H 08/21/16 11:49 Hemoglobin A1c 7.5 % (-5.6) H 08/19/16 15:58 Albumin 3.4 g/dL (3.5-5.0) L 08/20/16 04:49 Globulin 4.4 g/dL (2.4-3.5) H 08/20/16 04:49 Albumin/Globulin Ratio 0.8 (1.1-2.2) L 08/20/16 04:49 Triglycerides 151 mg/dL (< 150) H 08/20/16 04:49 HDL Cholesterol 35 mg/dL (40-59) L 08/20/16 04:49 Ur Specific [place] 1.008 (1.010-1.025) L 08/20/16 00:46 Ur Leukocyte Esterase Moderate (Negative) H 08/20/16 00:46 Urine Microscopic WBC 3-5 per hpf (0-3) H 08/20/16 00:46 Ur Squamous Epith Cells Many per lpf (None-Few) H 08/20/16 00:46 Consult Discharge Plan - Plan Referrals: Rayshawn Barroso MD [Primary Care Provider] -
--- NOTE | 2016-08-21 16:05 | Internal Med Progress Note ---
Date of Encounter: 08/21/16 Time of Encounter: 10:00 - Assessment and plan (1) Cellulitis of both feet Current Visit: Yes Status: Acute Assessment and plan: Cause by diabetic foot. - Patient was educated to check feet regularly. - Continue antibiotic treatment. Symptoms improved after treatment. - Wound culture shows both SA and GBS, final sensitivity pending. - Podiatry consult appreciated pt is at high risk because she is on vancomycin, need close monitoring (2) DVT prophylaxis Current Visit: Yes Status: Acute Assessment and plan: Heparin subcutaneously (3) Diabetes Current Visit: Yes Status: Chronic Assessment and plan: Continue basal and sliding [place] insulin. Adjust doses according to glucose level. 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 Her past medical history is significant for diabetes. Patient was seen and examined. The cellulitis had improved significantly after treatment with vancomycin and Rocephin. Patient complain no pain. No fever. Wound culture show both SA and Group B strep. Will continue vanco and rocephin. May switch to po upon discharge, based on sensitivity. - Constitutional Vitals: Temp Pulse Resp BP Pulse Ox 98.1 F 92 16 115/75 95 08/21/16 11:51 08/21/16 11:51 08/21/16 11:51 08/21/16 11:51 08/21/16 11:51 General appearance: Present: cooperative, A&O X 3, pleasant, no acute distress, obese, answers questions appropriately - Head Head exam: Present: atraumatic, normocephalic - Eye Eye exam: Present: PERRL, conjuntiva pink, sclera anicteric Pupils: Present: PERRL - Neck Neck exam general surgery: Present: supple, trachea midline. Absent: lymphadenopathy - Respiratory Respiratory exam: Present: CTAB. Absent: accessory muscle use, rales, rhonchi, wheezes - Cardiovascular Cardiovascular exam: Present: RRR, +S1, +S2. Absent: diastolic murmur, gallop, rubs, systolic murmur - GI/Abdominal GI/Abdominal exam: Present: normal bowel sounds, soft, no peritoneal signs. Absent: distended, tenderness - Extremities Exam Extremities exam: Present: warm, radial pulses palpable and symetrical. Absent : calf tenderness, cyanotic, pedal edema Additional comments: Improved cellulitis on both feet - Neurological Exam Neurological exam: Present: CN II-XII intact, oriented X3, no focal deficits. Absent: pronater drift, facial droop, speech deficit - Skin Skin exam: Present: dry, intact Internal Medicine: Result - Labs CBC & Chem 7: 08/21/16 05:11 08/21/16 05:11 Labs: Short CBC 08/21/16 Range/Units 05:11 WBC 5.1 (4.3-11.1) K/mcL Hgb 11.0 L (11.5-15.4) g/dL Hct 32.3 L (35.3-44.9) % Plt Count 175 (140-400) K/mcL Neutrophils # 2.3 (1.6-8.9) K/mcL BMP 08/21/16 05:11 Sodium 136 Potassium 3.6 Chloride 103 Carbon Dioxide 25 BUN 7 Creatinine 0.63 Glucose 233 H Calcium 9.5 - ABG Interpretation ABG results: PT/INR, D-dimer PT 13.2 Seconds (9.4-12.1) H 08/20/16 04:49 Consult Discharge Plan - Plan Referrals: Rayshawn Barroso MD [Primary Care Provider] -
[2016-08-21] MEDS ORDERED: Insulin LISPRO 300 UNITS/3 ML VIAL SQ SCH (16:07)
[2016-08-21] MEDS ORDERED: Vancomycin 1,000 MG in D5% in Water 250 ML IVPB SCH (18:00)
[2016-08-22] MEDS: Vancomycin 1,250 MG in D5% in Water 250 ML IVPB SCH (02:12)
[2016-08-22] MEDS: Insulin LISPRO 300 UNITS/3 ML VIAL SQ SCH ×2 (07:38→11:55)
[2016-08-22] MEDS: *HR* Heparin 5,000 UNIT/ML VIAL SQ SCH (07:39)
[2016-08-22] MEDS: Folic Acid 1 MG TABLET PO SCH (07:40)
[2016-08-22] MEDS: Cyanocobalamin (B-12) 1,000 MCG TABLET PO SCH (07:40)
[2016-08-22] MEDS: Pregabalin 50 MG CAPSULE PO SCH (07:40)
[2016-08-22] MEDS: Multivit/Ca/Min/Fe/FA 1 TAB TABLET PO SCH (07:40)
[2016-08-22] MEDS: ETANERCEPT 50 MG/ML SQ SCH (07:43)
[2016-08-22] MEDS: Insulin DETEMIR 100 UNIT/ML X5UNITS SQ SCH (08:30)
[2016-08-22 11:10] VITALS: BP 115/67
--- NOTE | 2016-08-22 11:47 | Discharge Summary ---
Date of Encounter: 08/22/16 Time of Encounter: 11:44 - Discharge Diagnosis (1) Diabetes Priority: Secondary Status: Chronic Qualifiers: Diabetes mellitus type: type 2 Diabetes mellitus complication status: with neurologic complications Diabetes mellitus complication detail: with unspecified neuropathy Diabetes mellitus vermin exterminator insulin use: with vermin exterminator use Qualified Code(s): E11.40 - Type 2 diabetes mellitus with diabetic neuropathy, unspecified; Z79.4 - marine oil terminal superintendent (current) use of insulin (2) Cellulitis of both feet Priority: Primary Status: Acute - Discharge Medications Prescriptions: Doxycycline 100 mg PO BID #10 capsule Home Medications: Citalopram [CeleXA] 20 mg PO DAILY 06/30/15 [History] Dulaglutide [Trulicity] 0.75 mg SQ QWEEK 06/30/15 [History] Insulin DETEMIR [Levemir] 60 unit SQ QAM 06/30/15 [History] Insulin LISPRO [Humalog Kwikpen U-100] 0 unit SQ BIDWM MDD PER SLIDING SCALE 11/06 [History] Metformin HCl [Glucophage] 1,000 mg PO BID 06/30/15 [History] Pregabalin [Lyrica] 100 mg PO TID 06/30/15 [History] Acetaminophen [Tylenol] 1,000 mg PO Q6HR PRN 08/19/16 [History] Cyanocobalamin (Vitamin B-12) [Vitamin B12] 1,000 mcg PO DAILY 08/19/16 [History ] Etanercept [Enbrel] 50 mg SQ 2XW 08/19/16 [History] Folic Acid 1 mg PO DAILY 08/19/16 [History] Imipramine HCl [Tofranil] 100 mg PO HS 08/19/16 [History] Insulin DETEMIR [Levemir Flextouch] 65 unit SQ HS 08/19/16 [History] Multivitamin [Multivitamins] 1 cap PO DAILY 08/19/16 [History] Pantoprazole Sodium [Protonix] 40 mg PO DAILY 08/19/16 [History] Triamcinolone Acet 0.1% CRM [Kenalog] 1 appl TP BID PRN 08/19/16 [History] Doxycycline 100 mg PO BID #10 capsule 08/22/16 [Rx] Allergies/Adverse Reactions: Allergies Amoxicillin Allergy (Verified 08/19/16 15:15) See Comments ibuprofen [From Advil] Allergy (Verified 08/19/16 15:15) See Comments Date of admission: 08/19/16 20:08 Primary care physician: Rayshawn Barroso MD Consults: 08/19/16 20:17 Consult to Livestock Rancher [CONS] Routine Comment: Reason for Consult: Patient has history of uncontrolled DM 08/19/16 21:33 Consult to Wound Care [CONS] Routine Reason for Consult: Patient has bilateral wounds on great toes with signs of cellulitis Call Completed: Yes 08/19/16 23:06 Consult to Podiatry [CONS] Routine Consulting Provider: Pod[facility]ry [facility] Reason for Consult: Patient has bilateral cellulitis of feet and lower extremities, especiall on great toes due to self-removal of callouses. Erythema and edema present which is worse on left foot, extending up to top of foot. Call Completed: Yes Discharging clinician: Tigre Sim Anticipated date of discharge: 08/22/16 - Patient Status Disposition: Home, Self-Care Condition: Fair Functional capacity at discharge: independent ambulation Overall status at discharge: patient is progressing back to baseline - Discharge Instructions Instructions: Doxycycline (By mouth) Follow Up With: Rocky Ball DPM [Partnered Physician] - 08/30/16 8:45 am Rayshawn Barroso MD [Primary Care Provider] - - Diet and Activity Activity: as per physical therapy Diet: advance to your usual diet Interval History: Ms. Wells is a 50 year old female who presents from the ED with chief complaint of swelling and pain in her great toes bilaterally as well as the top of her left foot. Patient reports this has been going on for three weeks. Patient has history of chronic diabetes with oral antihyperglycemics and insulin dependency that is uncontrolled Mrs. Wells has a history of psoriasis, diabetes, and migraines. She denies fever, chills, nausea, vomiting, chest pain, palpitations, SOB, abdominal pain, or changes in bowel and bladder. Patient was admtted for b/l lower leg cellulitis and given IV vancomycin and clindamycin .podiatry was consulted. Partial thickness ulceration to the left great toe secondary to pressure from callused lesion and DM with neuropathy. Decreased erythema and swelling since admission. Right great toe Ulceration is superficial. Significant improvement in ulceration, erythema and swelling have resolved. .wound culture results of left foot: GPC, strep agalcatiae (Group B). ESR: 45 hemoglobin A1C: 7.5 WBC with in normal limits. CT of both feet: negative for OM or abscess. cheyanne is being dc today in stable condition with oral antibiotics. Educated and discussed keeping blood sugars under control to aid in healing of ulcerations. Patient will need a post op shoe to the left foot upon discharge. Will need to f/u in wound care clinic with in one week of discharge from the hospital. Hospital course: Ms. Wells is a 50 year old female - Time Spent with Patient Total time spent providing and/or coordinating discharge services: - Constitutional Vitals: Temp Pulse Resp BP Pulse Ox 98.0 F 88 16 115/67 95 08/22/16 11:08 08/22/16 11:08 08/22/16 11:08 08/22/16 11:08 08/22/16 11:08 General appearance: Present: cooperative, A&O X 3, pleasant, no acute distress, obese, answers questions appropriately Exam: - Head Head exam: Present: atraumatic, normocephalic - Eye Eye exam: Present: PERRL, conjuntiva pink, sclera anicteric Pupils: Present: PERRL - Neck Neck exam general surgery: Present: supple, trachea midline. Absent: lymphadenopathy - Respiratory Respiratory exam: Present: CTAB. Absent: accessory muscle use, rales, rhonchi, wheezes - Cardiovascular Cardiovascular exam: Present: RRR, +S1, +S2. Absent: diastolic murmur, gallop, rubs, systolic murmur - GI/Abdominal GI/Abdominal exam: Present: normal bowel sounds, soft, no peritoneal signs. Absent: distended, tenderness - Extremities Exam Extremities exam: Present: warm, radial pulses palpable and symetrical. Absent : calf tenderness, cyanotic, pedal edema Additional comments: Improved cellulitis on both feet - Neurological Exam Neurological exam: Present: CN II-XII intact, oriented X3, no focal deficits. Absent: pronater drift, facial droop, speech deficit - Skin Skin exam: Present: dry, intact
--- NOTE | 2016-08-22 13:38 | Podiatry Progress Note ---
Date of Encounter: 08/22/16 Time of Encounter: 12:00 - Assessment and Plan (1) Cellulitis of both feet Current Visit: Yes Status: Acute Partial thickness ulceration to the left great toe secondary to pressure from callused lesion and DM with neuropathy. Decreased erythema and swelling since admission. Right great toe Ulceration is superficial. Significant improvement in ulceration, erythema and swelling have resolved. Currently receiving Vancomycin and Rocephin IV. Recommend patient be discharged on oral antibiotics based on sensitivity report from wound cultures obtained in ED. Preliminary wound culture results of left foot: GPC, strep agalcatiae (Group B). ESR: 45 hemoglobin A1C: 7.5 WBC with in normal limits. CT of both feet: negative for OM or abscess. Continue wound care as ordered. Educated and discussed keeping blood sugars under control to aid in healing of ulcerations. Patient will need a post op shoe to the left foot upon discharge. Will need to f/u in wound care clinic with in one week of discharge from the hospital. (2) Diabetes Current Visit: Yes Status: Chronic Qualifiers: Diabetes mellitus type: type 2 Diabetes mellitus complication status: with neurologic complications Diabetes mellitus complication detail: with unspecified neuropathy Diabetes mellitus termite control representative insulin use: with termite control representative use Qualified Code(s): E11.40 - Type 2 diabetes mellitus with diabetic neuropathy, unspecified; Z79.4 - jail (current) use of insulin (3) Psoriasis Current Visit: Yes Status: Chronic Subjective Interval history: Patient is sitting up in bed eating lunch with spouse at bedside. Patient states she is feeling better today, she states the left foot is sore. No c/o fever or chills overnight. Patient has dressings dry and intact to both feet with post op shoes at bedside. Patient states she is supposed to be discharged home today. Objective - Vital Signs Vital Signs: Vital Signs Temp Pulse Resp BP Pulse Ox 08/22/16 11:08 98.0 F 88 16 115/67 95 08/22/16 11:00 97.7 F 87 15 115/70 95 08/22/16 07:08 98.2 F 84 20 118/77 94 08/22/16 03:53 98.5 F 96 16 129/85 96 08/21/16 23:12 98.5 F 95 18 128/74 93 08/21/16 19:18 98.2 F 98 16 117/75 94 08/21/16 16:29 97.9 F 92 16 117/78 92 Intake and Output 08/21/16 08/22/16 08/22/16 23:59 07:59 15:59 Intake Total 890 / 890 100 / 100 240 / 240 Output Total 800 / 800 900 / 900 Balance 90 / 90 100 / 100 -660 / -660 Intake: IV Fluids 250 / 250 Vancocin 1,250 MG In 250 / 250 Dextrose 5% 250 ML @ 166. 67 mls/hr IVPB Q12H [facility] Rx#:[id number] Oral 640 / 640 100 / 100 240 / 240 Output: Urine 800 / 800 900 / 900 Other: Meal Breakfast Percent of Meal Consumed 100% 50% # Voids 1 Weight 72.529 kg Blood Glucose* 262 249 Patient Weight 08/22/16 23:59 Weight 72.529 kg - Exam Exam: General appearance: alert awake oriented X 3. Calm and pleasant, no acute distress.. Vascular: Pedal pulses +2/4 DP/PT , No evidence of cyanosis, pallor or rubor, Edema graded at 1+/4, Skin Temperature warm, No varicosities or varicose veins noted, Homans Sign negative, capillary refill time is immediate to digits.. Neurologic: Intact sensation with light touch. Musculoskeletal: Muscle strength 5/5 and equal bilaterally.. Integument: Skin with decreased turgor, decreased subcutaneous tissue, skin thin and shiny with trophic changes associated with comorbidities as described in history.reveal Ulcer: Partial thickness ulceration to the plantar aspect of the left great toe measuring 0.5 cm in length x 0.6 cm in width x 0.2 cm in depth with a tunnel at 3 O'clock measuring 1.2 cm, base of wound is yellow. Scant amount of serous drainage observed to dressing, no odor, decreased erythema today. Ulceration to medial aspect of right great toe is superficial, no tunneling, no sinus tracts, no pus, no odor, no probe to bone. - Lab Result Diagrams: 08/21/16 05:11 08/21/16 05:11 Labs: Abnormal lab results RBC 3.66 M/mcL (3.82-4.97) L 08/21/16 05:11 Hgb 11.0 g/dL (11.5-15.4) L 08/21/16 05:11 Hct 32.3 % (35.3-44.9) L 08/21/16 05:11 ESR 45 mm/hr (0-15) H 08/19/16 15:58 PT 13.2 Seconds (9.4-12.1) H 08/20/16 04:49 Glucose 233 mg/dL (70-99) H 08/21/16 05:11 POC Glucose 249 (58-89) H 08/22/16 11:07 Hemoglobin A1c 7.5 % (-5.6) H 08/19/16 15:58 Albumin 3.4 g/dL (3.5-5.0) L 08/20/16 04:49 Globulin 4.4 g/dL (2.4-3.5) H 08/20/16 04:49 Albumin/Globulin Ratio 0.8 (1.1-2.2) L 08/20/16 04:49 Triglycerides 151 mg/dL (< 150) H 08/20/16 04:49 HDL Cholesterol 35 mg/dL (40-59) L 08/20/16 04:49 Ur Specific [place] 1.008 (1.010-1.025) L 08/20/16 00:46 Ur Leukocyte Esterase Moderate (Negative) H 08/20/16 00:46 Urine Microscopic WBC 3-5 per hpf (0-3) H 08/20/16 00:46 Ur Squamous Epith Cells Many per lpf (None-Few) H 08/20/16 00:46 Consult Discharge Plan - Plan Instructions: Doxycycline (By mouth) Referrals: Rocky Ball DPM [Partnered Physician] - 08/30/16 8:45 am Rayshawn Barroso MD [Primary Care Provider] - Prescriptions: Doxycycline 100 mg PO BID #10 capsule
[2016-08-22] MEDS ORDERED: Aminoglycoside Consult 1 EACH MC ONE (13:59)
== END 2016-08-22 14:00 | disposition home or self-care (01) | DRG 638 ==
LOC: EMEROO 15:07 → 3ANU 15:07
PROVIDERS: ADMIT Internal Medicine; ATTEND Internal Medicine

== ENCOUNTER 2018-11-06 18:01 | Observation (INO) ==
[2018-11-06 19:22] LABS: Basophils # 0.1 K/mcL (0.0-0.2); Basophils % 0.6 %; Eosinophils # 0.1 K/mcL (0.0-0.6); Eosinophils % 1.8 %; Hematocrit 33.1 % (35.3-44.9); Hemoglobin 10.8 g/dL (11.5-15.4); Immature Granulocytes % 0.4 % (0-4); Lymphocytes # 1.3 K/mcL (0.6-4.6); Lymphocytes % 16.8 %; Mean Corpuscular HGB Conc 32.6 g/dL (31.6-35.5); Mean Corpuscular Hemoglobin 27.3 pg (28.0-33.3); Mean Corpuscular Volume 83.8 fL (83.0-100.0); Mean Platelet Volume 10.8 fL (9.4-12.4); Monocytes % 12.3 %; Neutrophils # 5.3 K/mcL (1.6-8.9); Platelet Count 140 K/mcL (140-400); Red Blood Count 3.95 M/mcL (3.82-4.97); Red Cell Distribution Width 16.6 % (11.5-14.5); Segmented Neutrophils % 68.1 %; White Blood Count 7.8 K/mcL (4.3-11.1)
[2018-11-06 19:43] LABS: BUN/Creatinine Ratio 19 (6-26); Blood Urea Nitrogen 14 mg/dL (6-20); Calcium 9.5 mg/dL (8.6-10.3); Carbon Dioxide 22 mEq/L (23-29); Chloride 94 mEq/L (98-107); Glucose 483 mg/dL (70-105); Osmolality,Calculated 286 (280-300); Sodium 127 mEq/L (136-145); Troponin I < 0.03 ng/mL (< 0.04); eGFR For African Americans > 60 (> 60); eGFR For Non-African Americans > 60 (> 60)
[2018-11-06] MEDS ORDERED: Isovue-370 500 ML BOTTLE IVP ONE (20:33)
[2018-11-06] MEDS ORDERED: Insulin Human Regular 10 UNIT in 0.9 % Sodium Chloride 10 ML IV ONE (20:44)
[2018-11-06] MEDS ORDERED: INSULIN HUMAN REGULAR IV ONE (20:44)
[2018-11-06] MEDS ORDERED: SODIUM CHLORIDE 0.9% IV ONE (20:44)
[2018-11-07] MEDS ORDERED: D5% in Water 1,000 ML IVC PRN (02:06)
[2018-11-07] MEDS ORDERED: *HR* Dextrose 50 % in Water (Syg) 50 ML SYRINGE IVP PRN (02:06)
[2018-11-07] MEDS ORDERED: Dextrose Gel 15 GM/37.5 ML TUBE PO PRN ×2 (02:06)
[2018-11-07] MEDS ORDERED: Insulin LISPRO 300 UNITS/3 ML VIAL SQ SCH ×2 (02:15→15:29)
[2018-11-07] MEDS ORDERED: Naloxone 0.4 MG/ML INJ IVP PRN (07:32)
[2018-11-07 07:54] LABS: Basophils # 0.1 K/mcL (0.0-0.2); Basophils % 0.9 %; Eosinophils # 0.2 K/mcL (0.0-0.6); Eosinophils % 2.8 %; Hematocrit 34.7 % (35.3-44.9); Hemoglobin 11.1 g/dL (11.5-15.4); Immature Granulocytes % 0.6 % (0-4); Lymphocytes # 1.1 K/mcL (0.6-4.6); Lymphocytes % 21.1 %; Mean Corpuscular Hemoglobin 27.2 pg (28.0-33.3); Mean Platelet Volume 10.4 fL (9.4-12.4); Monocytes # 0.7 K/mcL (0.0-1.3); Monocytes % 13.1 %; Neutrophils # 3.3 K/mcL (1.6-8.9); Platelet Count 121 K/mcL (140-400); Red Blood Count 4.08 M/mcL (3.82-4.97); Red Cell Distribution Width 17.1 % (11.5-14.5); Segmented Neutrophils % 61.5 %; White Blood Count 5.4 K/mcL (4.3-11.1)
[2018-11-07 08:03] LABS: INR 1.1; Prothrombin Time 12.3 Seconds (9.4-12.1)
[2018-11-07 08:06] LABS: Activated Partial Thrombo Time 30.9 Seconds (26.0-36.0)
[2018-11-07] MEDS: Insulin LISPRO 300 UNITS/3 ML VIAL SQ SCH ×4 (08:08→15:40)
[2018-11-07] MEDS: Aspirin Enteric Coated 81 MG Tablet PO SCH (08:08)
[2018-11-07] MEDS: Folic Acid 1 MG TABLET PO SCH (08:08)
[2018-11-07] MEDS: (Apremilast [Otezla] 30 MG) PO SCH ×2 (08:09→21:46)
[2018-11-07 08:15] LABS: Alanine Aminotransferase 29 Units/L (7-52); Albumin 3.7 g/dL (3.5-5.7); Alkaline Phosphatase 102 Units/L (34-104); Aspartate Amino Transferase 29 Units/L (13-39); BUN/Creatinine Ratio 14 (6-26); Bilirubin,Total 0.4 mg/dL (0.3-1.0); Blood Urea Nitrogen 8 mg/dL (6-20); Calcium 9.2 mg/dL (8.6-10.3); Carbon Dioxide 24 mEq/L (23-29); Chloride 98 mEq/L (98-107); Globulin 3.7 g/dL (2.4-3.5); Glucose 367 mg/dL (70-105); Osmolality,Calculated 289 (280-300); Phosphorous 3.5 mg/dL (2.7-4.5); Sodium 133 mEq/L (136-145); Total Protein 7.4 g/dL (6.4-8.9); eGFR For African Americans > 60 (> 60); eGFR For Non-African Americans > 60 (> 60)
[2018-11-07] MEDS: Pregabalin 50 MG CAPSULE PO SCH ×3 (08:39→20:39)
[2018-11-07 16:12] LABS: Estimated Average Glucose 301 mg/dl
[2018-11-07 19:30] LABS: Sodium, Urine 23.4 mEq/L
[2018-11-07] MEDS ORDERED: Acetaminophen 325 MG TABLET PO ONE (20:40)
[2018-11-07] MEDS ORDERED: Insulin DETEMIR 100 UNIT/ML X5UNITS SQ SCH (21:00)
[2018-11-08 03:22] LABS: Hematocrit 33.6 % (35.3-44.9); Hemoglobin 10.8 g/dL (11.5-15.4); Mean Corpuscular HGB Conc 32.1 g/dL (31.6-35.5); Mean Corpuscular Hemoglobin 27.6 pg (28.0-33.3); Mean Corpuscular Volume 85.7 fL (83.0-100.0); Mean Platelet Volume 9.9 fL (9.4-12.4); Platelet Count 107 K/mcL (140-400); Red Blood Count 3.92 M/mcL (3.82-4.97); Red Cell Distribution Width 17.1 % (11.5-14.5); White Blood Count 3.6 K/mcL (4.3-11.1)
[2018-11-08 03:41] LABS: BUN/Creatinine Ratio 15 (6-26); Blood Urea Nitrogen 9 mg/dL (6-20); Calcium 8.9 mg/dL (8.6-10.3); Carbon Dioxide 23 mEq/L (23-29); Chloride 103 mEq/L (98-107); Glucose 371 mg/dL (70-105); Osmolality,Calculated 294 (280-300); Potassium 3.8 mEq/L (3.5-5.1); Sodium 135 mEq/L (136-145); eGFR For African Americans > 60 (> 60); eGFR For Non-African Americans > 60 (> 60)
[2018-11-08] MEDS: (Apremilast [Otezla] 30 MG) PO SCH (08:03)
[2018-11-08] MEDS: Folic Acid 1 MG TABLET PO SCH (08:03)
[2018-11-08] MEDS: Aspirin Enteric Coated 81 MG Tablet PO SCH (08:03)
[2018-11-08] MEDS: Pregabalin 50 MG CAPSULE PO SCH (08:03)
[2018-11-08] MEDS: Insulin LISPRO 300 UNITS/3 ML VIAL SQ SCH (08:03)
[2018-11-08] MEDS ORDERED: FOLIC ACID 0.4 MG PO SCH (09:00)
[2018-11-08 11:29] VITALS: BP 99/62
== END 2018-11-08 13:08 | disposition home or self-care (01) ==
LOC: EMEROOARM 18:01 → 3BNU 18:01
PROVIDERS: ADMIT Internal Medicine Nephrology; ATTEND Internal Medicine Nephrology